=== PATIENT | male | born 1950 | race Caucasian/White ===

== ENCOUNTER 2020-10-02 08:00 | Outpatient (CLI) | payer MEDICARE ==
--- NOTE | 2020-10-02 09:41 | XRAY Report ---
PROCEDURE: Knee 3 View LT INDICATIONS: SPRAIN OF LEFT KNEE TECHNIQUE: 4 views of the left knee(s) were acquired. COMPARISON: None. FINDINGS: Bones: No fractures or dislocations but there is a moderately severe medial compartment joint space narrowing and also moderate patellofemoral joint degenerative osteoarthritis. No effusion or loose [place] is found.. No suspicious bony lesions. Soft tissues: No joint effusion. No suspicious soft tissue calcifications. IMPRESSION: No acute trauma found, no effusion or loose body. Moderately severe medial compartment j oint space narrowing appears to likely reflect chronic degenerative osteoarthritis. Moderate patellof emoral joint osteoarthritic change also. If there is concern for internal derangement follow-up by MR scanning may be warranted. Reviewed by: Jostin Jackson MD on 10/02/2020 9:39 AM PDT Approved by: Jostin Jackson MD on 10/02/2020 9:39 AM PDT Station ID: [id number]
== END 2020-10-02 23:59 | disposition home or self-care (01) ==
LOC: DI.S 08:00
PROVIDERS: ATTEND Physician Assistant Medical
DX: M17.12 Unilateral primary osteoarthritis, left knee (principal)